=== PATIENT | female | born 1975 | race African-American/Black ===

== ENCOUNTER 2020-09-09 15:17 | Outpatient (CLI) | payer OTHER ==
--- NOTE | 2020-09-09 16:23 | ULT ---
OB ULTRASOUND: Indications: anatomy FINDINGS: Single viable intrauterine . Gestational age by ultrasound 21 week 2 days. Biometry: BPD 20 weeks 6 days HC 21 weeks 3 days AC 21 weeks 3 days FL 21 weeks 2 days EFW: 414 grams, 21 weeks 3 days heart rate: 149 bpm Placenta: Posterior Presentation: Vertex Amniotic fluid: Adequate BELEN recorded at 17.4 cm Cervical length: 3.4 cm Anatomy: Intracranial contents, four-chamber heart, stomach, kidneys, cord insertion, bladder, spine, extremit ies and three-vessel cord were all imaged. No abnormality identified. IMPRESSION: 21 week 2 day gestation by ultrasound. No abnormality identified. POS: AGW
== END 2020-09-09 15:18 | disposition home or self-care (01) ==
LOC: BICULT 15:17
PROVIDERS: ATTEND Family Medicine
DX: O09.522 Supervision of elderly multigravida, second trimester (principal); Z3A.21 21 weeks gestation of pregnancy
CPT/HCPCS: 76805